=== PATIENT | female | born 1985 | race African-American/Black ===

== ENCOUNTER 2017-07-08 07:45 | Emergency (ER) | payer OTHER ==
[~2017-07-08] VITALS: Ht 162.6 cm; Wt 80.7 kg
[2017-07-08] MEDS ORDERED: PRENATE ELITE1 EAC2 (07:52)
[2017-07-08] MEDS ORDERED: FAMOTIDINE (07:52)
== END 2017-07-08 08:21 | disposition home or self-care (01) ==
LOC: SED 07:45
DX: O20.0 Threatened abortion (principal); Z88.1 Allergy status to other antibiotic agents; Z3A.11 11 weeks gestation of pregnancy
CPT/HCPCS: 99284